=== PATIENT | female | born 1965 | race Caucasian/White ===

== ENCOUNTER 2017-10-18 11:32 | Emergency (ER) | payer OTHER ==
[2017-10-18 11:43] VITALS: BP 127/86; PULSE 110; TEMP 99.5; BMI 26.6
[2017-10-18] MEDS ORDERED: guaiFENesin/D-METHORPHAN HB 10 ML UNIT-DOSE CUPS PO ONE (11:58)
[2017-10-18] MEDS ORDERED: ALBUTEROL SO4 2.5/IPRATROPIUM 0.5 INH SOL 3 ML VIAL.NEB. NEB ONE ×2 (11:58→12:00)
[2017-10-18] MEDS ORDERED: guaiFENesin/D-METHORPHAN HB 10 ML UNIT-DOSE CUPS ONE (12:00)
--- NOTE | 2017-10-18 12:01 | PDOC ---
History of Present Illness - General Chief Complaint: Cold Symptoms Stated Complaint: COUGH Time Seen by Provider: 10/18/17 11:50 History Source: Patient Exam Limitations: No Limitations - History of Present Illness Initial Comments: 10/18/17 11:59 52 yr female with cough for 3 days fever 2 days ago . Timing/Duration: reports: getting worse Severity: reports: moderate Possible Cause: Yes: occasional episodes (bronchitis) Past History - Past Medical History Allergies/Adverse Reactions: Allergies Allergy/AdvReac Type Severity Reaction Status Date / Time No Known Allergies Allergy Verified 10/18/17 11:39 Home Medications: Ambulatory Orders Cephalexin Monohydrate [Keflex] 500 mg PO TID #20 capsule 03/30/12 Hydrocodone Bit/Acetaminophen [Vicodin 5-500 Tablet] 1 combo PO Q6H PRN #6 tab 03/30/12 Albuterol Sulfate Inhaler - [Ventolin HFA Inhaler -] 1 - 2 inh PO Q4H #1 inhaler 10/18/17 Azithromycin [Zithromax 250mg Tablets -] 250 mg PO UTDICT #6 tab 10/18/17 Benzonatate [Tessalon Pearls -] 200 mg PO TID PRN #42 cap 10/18/17 Prednisone [Deltasone -] 40 mg PO DAILY #10 tablet 10/18/17 COPD: No HTN: Yes Other medical history: scoliosis - Surgical History Cholecystectomy: Yes - Suicide/Smoking/Psychosocial Hx Smoking Status: No Smoking History: Never smoked Have you smoked in the past 12 months: No Number of Cigarettes Smoked Daily: 0 Information on smoking cessation initiated: No Hx Alcohol Use: No Drug/Substance Use Hx: No Substance Use Type: None Respiratory Specific PMHX - Complaint Specific PMHX Angina: No Bronchitis: Yes Pneumonia: No Pulmonary Embolus: No TB (Tuberculosis): No Review of Systems - Review of Systems Able to Perform ROS?: Yes Is the patient limited Pashto proficient: No Constitutional: Yes: Symptoms Reported, Fever HEENTM: No: Symptoms Reported Respiratory: Yes: Symptoms reported *Physical Exam - Vital Signs Last Vital Signs Temp Pulse Resp BP Pulse Ox 99.5 F 110 H 18 127/86 100 10/18/17 11:40 10/18/17 11:40 10/18/17 11:40 10/18/17 11:40 10/18/17 11:40 - Physical Exam General Appearance: Yes: Nourished, Appropriately Dressed HEENT: positive: EOMI, LANE, Normal ENT Inspection, TMs Normal, Pharynx Normal Neck: positive: Supple. negative: Lymphadenopathy (R), Lymphadenopathy (L) Respiratory/Chest: positive: Lungs Clear, Normal Breath Sounds, Decreased Breath Sounds. 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 NML intact, Fully Oriented, Alert, Normal Mood/ Affect, Normal Response, Motor Strength 02/16 ED Treatment Course - RADIOLOGY Radiology Studies Ordered: Category Date Time Status CHEST PA & LAT [RAD] Stat Radiology 10/18/17 11:58 Ordered Medical Decision Making - Medical Decision Making 10/18/17 12:00 cc: cough for 3 days getting worse had wheezing last night no chest pain has SOB with the coughing no history of COPD, CHF pt has HTN on lisinopril , recently started lisinopril 3 weeks ago will give duoneb, CXR , robitussin 10/18/17 12:36 10/18/17 12:36 pt feels better after duoneb , no coughing now repeat lung exam after neb clear bilaterally with good inspiration and effort. no wheezing *DC/Admit/Observation/Transfer Diagnosis at time of Disposition: Bronchitis - Discharge Dispostion Disposition: HOME Condition at time of disposition: Improved - Prescriptions Prescriptions: Albuterol Sulfate Inhaler - [Ventolin HFA Inhaler -] 1 - 2 inh PO Q4H #1 inhaler Azithromycin [Zithromax 250mg Tablets -] 250 mg PO UTDICT #6 tab Benzonatate [Tessalon Pearls -] 200 mg PO TID PRN #42 cap PRN Reason: Cough Prednisone [Deltasone -] 40 mg PO DAILY #10 tablet - Referrals Referrals: Mikey Pierce MD [Primary Care Provider] - - Patient Instructions Printed Discharge Instructions: DI for Acute Bronchitis Additional Instructions: drink pleanty of water at least 2 liters and rest at home take the medications as prescribed, start today follow with your doctor Sunday if you are not improving or worse return to ER if needed for any worsening symptoms - Post Discharge Activity Forms/Work/School Notes: Back to Work
== END 2017-10-18 12:33 | disposition home or self-care (01) ==
LOC: JERFT 11:32
PROC: 3E0F7GC Introduction of Other Therapeutic Substance into Respiratory Tract, Via Natural or Artificial Opening (ICD-10-PCS; principal; 2017-10-18)
DX: J40 Bronchitis, not specified as acute or chronic (principal); I10 Essential (primary) hypertension
CPT/HCPCS: 71046-TC; 99281-25

== ENCOUNTER 2023-10-02 12:54 | Emergency (ER) | payer BC, OTHER ==
[2023-10-02 13:32] VITALS: BP 169/100; PULSE 98; RESP 18; TEMP 98.2; BMI 29.2
[2023-10-02 15:02] LABS: BASO % 1.2 % (0-2.0); EOS % 2.3 % (0-4.5); HEMATOCRIT 39.3 % (32.4-45.2); HEMOGLOBIN 13.3 GM/dL (10.7-15.3); MCH 31.2 pg (25.7-33.7); MCHC 33.9 g/dl (32.0-36.0); MEAN CELL VOLUME 92.1 fl (80-96); MEAN PLT VOLUME 6.9 fl (7.5-11.1); MONO % 7.2 % (3.8-10.2); NEUT % 48.3 % (42.8-82.8); PLATELET COUNT 317 10^3/uL (134-434); RBC 4.27 M/mm3 (3.60-5.2); WHITE BLOOD COUNT 6.6 K/mm3 (4.0-10.0)
[2023-10-02 15:03] LABS: PH,URINE 6.5 (5.0-8.0); URINE APPEARANCE CLEAR; URINE BILIRUBIN NEGATIVE (NEGATIVE); URINE COLOR YELLOW; URINE GLUCOSE (UA) NEGATIVE (NEGATIVE); URINE KETONE NEGATIVE (NEGATIVE); URINE LEUK ESTERASE NEGATIVE (NEGATIVE); URINE NITRITE NEGATIVE (NEGATIVE); URINE PROTEIN NEGATIVE (NEGATIVE); URINE UROBILINOGEN 0.2 mg/dL (0.2-1.0)
[2023-10-02 15:22] LABS: ALBUMIN 3.7 g/dl (3.4-5.0); CALCIUM 9.5 mg/dL (8.5-10.1)
[2023-10-02 15:23] LABS: BLOOD UREA NITROGEN 11.1 mg/dL (7-18)
[2023-10-02 15:25] LABS: CREATININE 0.7 mg/dL (0.55-1.3)
[2023-10-02 15:27] LABS: BILIRUBIN,TOTAL 0.2 mg/dL (0.2-1); TOT PROT 7.6 g/dl (6.4-8.2)
== END 2023-10-02 16:01 | disposition home or self-care (01) ==
LOC: JER 12:54
DX: R07.9 Chest pain, unspecified (principal); R42 Dizziness and giddiness
CPT/HCPCS: 36415; 80053; 81003; 84484; 85025; 87086; 93005; 93010; 99284-25